=== PATIENT | male | born 1960 | race Caucasian/White ===

== ENCOUNTER 2023-02-26 11:27 | Inpatient (IN) | payer BC ==
[~2023-02-26] VITALS: Ht 175.3 cm; Wt 57.6 kg
[2023-02-26 11:29] VITALS: BP_SYST 134; PULSE 139; RESP 29; TEMP 96.7; O2SAT 95
[2023-02-26] MEDS ORDERED: ONDANSETRON HCL 4 MG/2 ML VIAL IVP ONE (11:30)
[2023-02-26] MEDS ORDERED: MORPHINE 4 MG INJ. 4 MG/ML VIAL IVP ONE (11:30)
[2023-02-26] MEDS ORDERED: NACL 0.9% 1,000 ML IV ONE ×3 (11:30→14:30)
[2023-02-26] MEDS ORDERED: DICYCLOMINE HCL 20 MG/2 ML AMP IM ONE (11:45)
[2023-02-26] MEDS ORDERED: fentaNYL CITRATE/PF 100 MCG/2 ML AMP IVP ONE ×2 (11:45→13:00)
[2023-02-26 11:55] LABS: BASOPHILS # (AUTO) 0.1 K/uL (0.0-0.2); BASOPHILS % (AUTO) 0.6 % (0.0-2.0); EOSINOPHILS % (AUTO) 0.2 % (0.0-4.0); HEMATOCRIT 31.1 % (36-54); HEMOGLOBIN 9.5 g/dL (14.0-18.0); LYMPHOCYTES # (AUTO) 3.3 K/uL (1.0-5.5); LYMPHOCYTES % (AUTO) 19.8 % (20.5-51.5); MEAN CORPUSCULAR HEMOGLOBIN 28 pg (27-31); MEAN CORPUSCULAR HGB CONC 31 % (32-36); MEAN CORPUSCULAR VOLUME 91 fL (79.0-98.0); MONOCYTES # (AUTO) 1.8 K/uL (0.0-1.0); MONOCYTES % (AUTO) 11.1 % (1.7-9.3); NEUTROPHILS # (AUTO) 11.4 K/uL (1.8-7.7); PLATELET COUNT (AUTO) 339 K/uL (130-430); RED BLOOD CELL COUNT(AUTO) 3.42 MIL/uL (4.2-6.2); RED CELL DISTRIBUTION WIDTH 16.1 % (9.0-15.0); WHITE BLOOD COUNT (AUTO) 16.6 K/uL (4.8-10.8)
[2023-02-26 12:10] LABS: CALCIUM 8.9 mg/dL (8.4-11.0); CREATININE 1.32 mg/dL (0.55-1.30); POTASSIUM 3.5 mmol/L (3.5-5.1)
[2023-02-26 12:13] LABS: INR 1.5 (0.80-1.20); PROTHROMBIN TIME 15.3 SECS (9.5-12.5)
[2023-02-26 12:23] LABS: ALBUMIN 2.1 g/dL (3.4-4.8); TOTAL BILIRUBIN 1.3 mg/dL (0.0-1.0); TOTAL PROTEIN, SERUM 6.7 g/dL (6.4-8.3)
[2023-02-26] MEDS ORDERED: PIPERACILLIN/TAZOBACTAM 2.25 GM in NS 50 ML IV ONE (13:15)
[2023-02-26] MEDS ORDERED: VANCOMYCIN HCL 1,000 MG in NS 250 ML IV ONE (13:15)
[2023-02-26] MEDS ORDERED: iohexoL 350 mgI/mL, 100 ML INFUS..BTL IV ONE (13:17)
[2023-02-26] MEDS ORDERED: VANCOMYCIN HCL 1000 MG/VIAL IV ONE (13:38)
[2023-02-26] MEDS ORDERED: PIPERACILLIN/TAZOBACTAM 2.25 GM VIAL IV ONE (13:38)
[2023-02-26 13:43] LABS: NEUTROPHILS % (AUTO) 68.3 % (40.0-70.0)
[2023-02-26] MEDS ORDERED: D5/0.45 NS 1,000 ML IV ONE (15:00)
[2023-02-26] MEDS ORDERED: DEXA4TAB PO (15:01)
[2023-02-26] MEDS ORDERED: GABA300T25 (15:01)
[2023-02-26] MEDS ORDERED: SUCR1ORA15 PO (15:01)
[2023-02-26] MEDS ORDERED: AMYL1CAP58 PO (15:01)
[2023-02-26] MEDS ORDERED: GABA1TAB3 (15:01)
[2023-02-26] MEDS ORDERED: OXYC10TA48 PO (15:01)
[2023-02-26] MEDS ORDERED: MORP60TA4 PO (15:01)
[2023-02-26 16:42] VITALS: BP_SYST 104; PULSE 102; RESP 18; TEMP 99; O2SAT 100
[2023-02-26] MEDS ORDERED: NALOXONE HCL 0.4 MG/ML AMP (NARCAN) IVP PRN ×2 (17:45→19:30)
[2023-02-26] MEDS ORDERED: MORPHINE 2 MG/ML INJ. SYRINGE IVP PRN (17:45)
[2023-02-26] MEDS ORDERED: ONDANSETRON HCL 4 MG/2 ML VIAL IVP PRN (17:45)
[2023-02-26] MEDS: MORPHINE 4 MG INJ. 4 MG/ML VIAL IVP PRN ×2 (17:48→23:09)
[2023-02-26] MEDS: PIPERACILLIN/TAZO 3.375/DEX-IS 50 ML IV SCH ×2 (18:55→19:12)
[2023-02-26 19:50] VITALS: BP_SYST 104; PULSE 104; RESP 18; TEMP 99
[2023-02-26 20:00] VITALS: BP_SYST 110; PULSE 131; RESP 15; TEMP 99.3
[2023-02-26] MEDS: HYDROmorphone 1 MG/ML INJ. CARTRIDGE IVP PRN (20:04)
[2023-02-27 00:04] VITALS: BP_SYST 104; PULSE 96; RESP 13; TEMP 96.9; O2SAT 96
[2023-02-27] MEDS: HYDROmorphone 1 MG/ML INJ. CARTRIDGE IVP PRN (01:00)
[2023-02-27] MEDS: MORPHINE 4 MG INJ. 4 MG/ML VIAL IVP PRN ×2 (03:22→09:52)
[2023-02-27] MEDS: PIPERACILLIN/TAZO 3.375/DEX-IS 50 ML IV SCH ×4 (05:08→23:45)
[2023-02-27 08:00] VITALS: BP_SYST 106; PULSE 116; RESP 16; TEMP 97.3; O2SAT 97
[2023-02-27] MEDS ORDERED: LORazepam 2 MG/ML VIAL IVP PRN (12:00)
[2023-02-27] MEDS ORDERED: ONDANSETRON HCL 4 MG/2 ML VIAL IVP PRN (12:00)
[2023-02-27] MEDS: MORPHINE SULFATE 30 MG TABLET.SA PO SCH ×2 (14:00→22:01)
[2023-02-27] MEDS: NORMAL SALINE 5 ML DISP.SYRIN IVF SCH ×2 (14:00→22:00)
[2023-02-27 16:00] VITALS: BP_SYST 105; PULSE 120; RESP 18; TEMP 98; O2SAT 99
[2023-02-27] MEDS: SUCRALFATE 1 GM TABLET PO SCH ×2 (18:53→20:38)
[2023-02-27] MEDS: LIPASE/PROTEASE/AMYLASE 1 CAP PO SCH ×2 (18:53→20:37)
[2023-02-27] MEDS: GABAPENTIN 300 MG CAPSULE PO SCH ×2 (18:55→20:38)
[2023-02-27] MEDS: DECADRON 4 MG TABLET PO SCH (20:39)
[2023-02-27] MEDS: oxyCODONE HCL 10 MG TAB.ER.12H PO SCH (20:40)
[2023-02-27 21:23] VITALS: BP_SYST 110; PULSE 91; RESP 17; TEMP 99; O2SAT 98
[2023-02-28 03:55] VITALS: BP_SYST 97; PULSE 115; RESP 18; TEMP 99; O2SAT 97
[2023-02-28] MEDS: MORPHINE SULFATE 30 MG TABLET.SA PO SCH ×3 (05:22→22:38)
[2023-02-28] MEDS: NORMAL SALINE 5 ML DISP.SYRIN IVF SCH ×3 (05:26→21:24)
[2023-02-28] MEDS: SUCRALFATE 1 GM TABLET PO SCH ×4 (06:19→21:23)
[2023-02-28] MEDS: PIPERACILLIN/TAZO 3.375/DEX-IS 50 ML IV SCH ×4 (06:30→23:27)
[2023-02-28 07:29] LABS: CALCIUM 7.4 mg/dL (8.4-11.0); CREATININE 0.71 mg/dL (0.55-1.30); POTASSIUM 3.6 mmol/L (3.5-5.1)
[2023-02-28 07:42] LABS: TOTAL IRON BIND. CAPACITY 87 ug/dL (250-450)
[2023-02-28 08:00] VITALS: BP_SYST 94; PULSE 89; RESP 16; TEMP 97.1; O2SAT 96
[2023-02-28 08:07] LABS: WHITE BLOOD COUNT (AUTO) 17.5 K/uL (4.8-10.8)
[2023-02-28 08:10] LABS: HEMATOCRIT 18.3 % (36-54); HEMOGLOBIN 5.9 g/dL (14.0-18.0); MEAN CORPUSCULAR HEMOGLOBIN 28 pg (27-31); MEAN CORPUSCULAR HGB CONC 32 % (32-36); MEAN CORPUSCULAR VOLUME 87 fL (79.0-98.0); NEUTROPHILS % (AUTO) 93.2 % (40.0-70.0); PLATELET COUNT (AUTO) 179 K/uL (130-430)
[2023-02-28 08:11] LABS: BASOPHILS % (AUTO) 0.1 % (0.0-2.0); LYMPHOCYTES # (AUTO) 0.2 K/uL (1.0-5.5); LYMPHOCYTES % (AUTO) 1.1 % (20.5-51.5); MONOCYTES % (AUTO) 5.6 % (1.7-9.3); NEUTROPHILS # (AUTO) 16.3 K/uL (1.8-7.7)
[2023-02-28] MEDS: oxyCODONE HCL 10 MG TAB.ER.12H PO SCH ×2 (09:00→21:24)
[2023-02-28] MEDS: GABAPENTIN 300 MG CAPSULE PO SCH ×3 (09:58→21:23)
[2023-02-28] MEDS: LIPASE/PROTEASE/AMYLASE 1 CAP PO SCH ×3 (09:58→21:24)
[2023-02-28] MEDS: DECADRON 4 MG TABLET PO SCH (09:58)
[2023-02-28 10:00] VITALS: O2SAT 100
[2023-02-28 12:00] VITALS: BP_SYST 96; PULSE 88; RESP 16; TEMP 97.9; O2SAT 98
[2023-02-28] MEDS ORDERED: PANTOPRAZOLE SODIUM 40 MG/VIAL (PROTONIX) IVP ONE (12:45)
[2023-02-28] MEDS: NACL 0.9% 1,000 ML IV SCH ×2 (14:45→23:29)
[2023-02-28 16:00] VITALS: BP_SYST 92; PULSE 82; RESP 16; TEMP 97.5; O2SAT 97
[2023-02-28 20:00] VITALS: BP_SYST 99; PULSE 82; RESP 17; TEMP 97.4; O2SAT 97
[2023-02-28] MEDS: PANTOPRAZOLE SODIUM 40 MG/VIAL (PROTONIX) IVP SCH (21:23)
[2023-03-01] VITALS: BP_SYST 104; PULSE 87; RESP 17; TEMP 96.6; O2SAT 95
[2023-03-01 05:05] LABS: ERYTHROCYTE SEDIMENTATION RATE 33 MM/HR (0-15)
[2023-03-01 05:22] LABS: BASOPHILS % (AUTO) 0.2 % (0.0-2.0); HEMATOCRIT 26.5 % (36-54); HEMOGLOBIN 8.9 g/dL (14.0-18.0); LYMPHOCYTES # (AUTO) 0.2 K/uL (1.0-5.5); LYMPHOCYTES % (AUTO) 0.8 % (20.5-51.5); MEAN CORPUSCULAR HEMOGLOBIN 29 pg (27-31); MEAN CORPUSCULAR HGB CONC 34 % (32-36); MEAN CORPUSCULAR VOLUME 87 fL (79.0-98.0); MONOCYTES # (AUTO) 1.2 K/uL (0.0-1.0); MONOCYTES % (AUTO) 4.9 % (1.7-9.3); NEUTROPHILS # (AUTO) 23.4 K/uL (1.8-7.7); NEUTROPHILS % (AUTO) 94.1 % (40.0-70.0); PLATELET COUNT (AUTO) 157 K/uL (130-430); RED BLOOD CELL COUNT(AUTO) 3.04 MIL/uL (4.2-6.2); RED CELL DISTRIBUTION WIDTH 15.4 % (9.0-15.0); WHITE BLOOD COUNT (AUTO) 24.9 K/uL (4.8-10.8)
[2023-03-01 05:55] LABS: ALBUMIN 1.2 g/dL (3.4-4.8); CALCIUM 7.3 mg/dL (8.4-11.0); CREATININE 0.62 mg/dL (0.55-1.30); PHOSPHORUS 2.8 mg/dL (2.7-4.5); POTASSIUM 3.1 mmol/L (3.5-5.1); TOTAL BILIRUBIN 6.1 mg/dL (0.0-1.0); TOTAL PROTEIN, SERUM 4.3 g/dL (6.4-8.3)
[2023-03-01] MEDS: MORPHINE SULFATE 30 MG TABLET.SA PO SCH ×3 (06:53→23:15)
[2023-03-01] MEDS: NORMAL SALINE 5 ML DISP.SYRIN IVF SCH ×3 (06:53→23:16)
[2023-03-01] MEDS: PIPERACILLIN/TAZO 3.375/DEX-IS 50 ML IV SCH ×4 (06:54→23:14)
[2023-03-01] MEDS: SUCRALFATE 1 GM TABLET PO SCH ×4 (06:56→23:13)
[2023-03-01 07:30] VITALS: O2SAT 97
[2023-03-01 07:58] VITALS: BP_SYST 98; PULSE 77; RESP 18; TEMP 97.4; O2SAT 97
[2023-03-01] MEDS: GABAPENTIN 300 MG CAPSULE PO SCH ×3 (08:29→23:14)
[2023-03-01] MEDS: oxyCODONE HCL 10 MG TAB.ER.12H PO SCH ×2 (08:29→23:15)
[2023-03-01] MEDS: PANTOPRAZOLE SODIUM 40 MG/VIAL (PROTONIX) IVP SCH ×2 (08:29→23:13)
[2023-03-01] MEDS: LIPASE/PROTEASE/AMYLASE 1 CAP PO SCH ×3 (08:29→23:15)
[2023-03-01] MEDS ORDERED: POTASSIUM CHLORIDE 20 MEQ TAB.PRT.SR PO ONE (10:15)
[2023-03-01 11:30] VITALS: BP_SYST 116; PULSE 76; RESP 16; TEMP 98.2; O2SAT 99
[2023-03-01 16:45] VITALS: BP_SYST 131; PULSE 80; RESP 17; TEMP 98.6; O2SAT 98
[2023-03-01 20:30] VITALS: BP_SYST 135; PULSE 78; RESP 18; TEMP 97.5; O2SAT 96
[2023-03-02] VITALS: O2SAT 96
[2023-03-02 01:01] VITALS: BP_SYST 120; PULSE 69; RESP 17; TEMP 97.2; O2SAT 98
[2023-03-02 01:06] LABS: FOLATE (FOLIC ACID) 12.1 ng/mL (>3.0)
[2023-03-02 03:46] LABS: BILIRUBIN,URINE 1+ (NEGATIVE); BLOOD, URINE NEGATIVE (NEGATIVE); CLARITY/URINE Clear (CLEAR); COLOR,URINE YELLOW (YELLOW); GLUCOSE,URINE NEGATIVE (NEGATIVE); KETONES,URINE NEGATIVE (NEGATIVE); LEUKOCYTE ESTERASE ,URINE NEGATIVE (NEGATIVE); NITRITE, URINE NEGATIVE (NEGATIVE); PROTEIN URINE NEGATIVE (NEGATIVE); UROBILINOGEN,URINE 0.2 (0.2-1.0)
[2023-03-02 05:33] LABS: ERYTHROCYTE SEDIMENTATION RATE 12 MM/HR (0-15)
[2023-03-02 05:41] LABS: HEMOGLOBIN 8.8 g/dL (14.0-18.0); LYMPHOCYTES # (AUTO) 0.4 K/uL (1.0-5.5); LYMPHOCYTES % (AUTO) 2.2 % (20.5-51.5); MEAN CORPUSCULAR HEMOGLOBIN 29 pg (27-31); MEAN CORPUSCULAR HGB CONC 33 % (32-36); MEAN CORPUSCULAR VOLUME 89 fL (79.0-98.0); MONOCYTES # (AUTO) 1.1 K/uL (0.0-1.0); MONOCYTES % (AUTO) 6.6 % (1.7-9.3); NEUTROPHILS # (AUTO) 15.7 K/uL (1.8-7.7); NEUTROPHILS % (AUTO) 91.2 % (40.0-70.0); PLATELET COUNT (AUTO) 101 K/uL (130-430); RED BLOOD CELL COUNT(AUTO) 3.02 MIL/uL (4.2-6.2); RED CELL DISTRIBUTION WIDTH 15.7 % (9.0-15.0); WHITE BLOOD COUNT (AUTO) 17.2 K/uL (4.8-10.8)
[2023-03-02 06:08] LABS: CALCIUM 7.7 mg/dL (8.4-11.0); CREATININE 0.72 mg/dL (0.55-1.30); POTASSIUM 3.6 mmol/L (3.5-5.1)
[2023-03-02] MEDS: NORMAL SALINE 5 ML DISP.SYRIN IVF SCH (07:07)
[2023-03-02] MEDS: PIPERACILLIN/TAZO 3.375/DEX-IS 50 ML IV SCH ×2 (07:07→11:47)
[2023-03-02] MEDS: NACL 0.9% 1,000 ML IV SCH (07:08)
[2023-03-02] MEDS: MORPHINE SULFATE 30 MG TABLET.SA PO SCH (07:09)
[2023-03-02] MEDS: SUCRALFATE 1 GM TABLET PO SCH ×2 (07:11→11:47)
[2023-03-02 07:30] VITALS: BP_SYST 97; PULSE 76; RESP 18; TEMP 96.6; O2SAT 99
[2023-03-02] MEDS: PANTOPRAZOLE SODIUM 40 MG/VIAL (PROTONIX) IVP SCH (09:51)
[2023-03-02] MEDS: GABAPENTIN 300 MG CAPSULE PO SCH (09:51)
[2023-03-02] MEDS: LIPASE/PROTEASE/AMYLASE 1 CAP PO SCH (09:51)
[2023-03-02] MEDS: oxyCODONE HCL 10 MG TAB.ER.12H PO SCH (09:52)
[2023-03-02] MEDS ORDERED: PRO40 PO (10:36)
[2023-03-02] MEDS ORDERED: AUG875 PO (10:36)
[2023-03-02 11:30] VITALS: BP_SYST 107; PULSE 80; RESP 17; TEMP 98.4; O2SAT 95
[2023-03-02 11:59] VITALS: BP_SYST 97; PULSE 76; RESP 18; TEMP 96.4; O2SAT 99
== END 2023-03-02 13:55 | disposition home or self-care (01) | DRG 871 ==
LOC: SED 11:27 → SMU 14:47
PROVIDERS: ADMIT Preventive Medicine Preventive Medicine/Occupational Environmental Medicine; ATTEND Preventive Medicine Preventive Medicine/Occupational Environmental Medicine
PROC: 30233N1 Transfusion of Nonautologous Red Blood Cells into Peripheral Vein, Percutaneous Approach (ICD-10-PCS; principal; 2023-02-28)
DX: A41.9 Sepsis, unspecified organism (principal); E43 Unspecified severe protein-calorie malnutrition; E87.20 Acidosis, unspecified; C25.9 Malignant neoplasm of pancreas, unspecified; D68.9 Coagulation defect, unspecified; N17.9 Acute kidney failure, unspecified; K92.2 Gastrointestinal hemorrhage, unspecified; E87.1 Hypo-osmolality and hyponatremia; Z68.1 Body mass index [BMI] 19.9 or less, adult; D64.9 Anemia, unspecified; R74.01 Elevation of levels of liver transaminase levels; E88.09 Other disorders of plasma-protein metabolism, not elsewhere classified; K81.9 Cholecystitis, unspecified; E87.6 Hypokalemia; R73.9 Hyperglycemia, unspecified; F41.9 Anxiety disorder, unspecified; K21.9 Gastro-esophageal reflux disease without esophagitis; E83.51 Hypocalcemia; D69.6 Thrombocytopenia, unspecified; E83.52 Hypercalcemia
CPT/HCPCS: 36415; 76376; 80048; 80053; 81003; 82272; 82607; 82728; 82746; 83540; 83550; 83605; 83690; 83735; 84100; 85025; 85044; 85610-TC; 85651-TC; 85730-TC; 86301; 86886; 86900; 86901; 86920; 97116-GP; 97163-GP; 99291; C9113; J0500; J1170; J2270; J2274; J2405; J2543; J3010; J3370; J7030; J7050; J8540; P9021; Q9967